=== PATIENT | male | born 1995 | race Caucasian/White ===

== ENCOUNTER 2019-03-01 06:42 | Emergency (ER) | payer BC ==
[~2019-03-01] VITALS: Ht 170.2 cm; Wt 83.9 kg
--- OUTSIDE RECORDS SUMMARY | 2019-03-01 06:45 | XMS REPORT | Encounter Summary ---
Author Organization Unknown Address [address] [place] [address] Phone [phone] Reason for Visit Medical Complaint Instructions 1. Streptococcal sore throat strep throat: care instructions amoxicillin 875 mg tablet rapid strep group A, throat Medrol (Kenny) 4 mg tablets in a dose pack 2. Feeling feverish rapid flu (A+B) 3. Body mass index 30+ - obesity body mass index: care instructions 4. Immunization due Discussion Note Encouraged warm salt-water gargles and monitor for fever. Please seek care (PCP, Urgent Care, ER) or return to [facility] if symptoms get worse or do not resolve in 1 week. Patient understands to practice good hand hygiene, take abx as prescribed, disinfect common areas of the home and purchase new tooth brushes. Plan of Care Patient Instructions Follow up with PCP or go to ER or urgent care if symptoms get worsen Reminders Provider Appointments None recorded. Lab Rapid Strep Group a, Throat 12/16/2018 [facility] Rapid Flu (A+B) 12/16/2018 [facility] Referral None recorded. Procedures None recorded. Surgeries None recorded. Imaging None recorded. Medications Name Start Date amoxicillin 875 mg tablet Take 1 tablet every 12 hours by oral route after meals for 10 days. Medrol (Kenny) 4 mg tablets in a dose pack Take as directed in the pack Medications Administered None recorded. Vitals Height Weight BMI Blood Pressure 5 ft 7 in 200 lbs 31.3 kg/m2 110/80 mm[Hg] Lab Results Date Name Specimen Result Interpretation Description Value Range Status Address Rapid Flu (A+B) Influenza a negative [facility]: [address] [place] [address] Influenza B negative [facility]: [address] [place] [address] Rapid Strep Group a, Throat Result positive [facility]: [address] [place] [address] Swab Location Left and Right tonsillar pillars [facility]: [address] [place] [address] Allergies Code Code System Name Reaction Severity Status Onset NKDA Problems No Known Problems Procedures Date Name Performed by Hand Tendon Reconstruction Information not available Vaccine List Vaccine Type influenza, unspecified formulation 06/12/2016 Social History Smoking Status Never Smoker Past Encounters 12/16/2018 Streptococcal Sore Throat; Feeling Feverish; Body Mass Index 30+ - Obesity; Immunization Due Farhana YoANTONIO-C: [address] [facility], [place] [address], Ph. History of Present Illness Throat-Oral Complaint Reported By: Patient HPI: Location: throat. Quality: sore throat. Severity: mild. Duration: 2 days. Onset/Timing: sudden. Context: no sick contacts, no foreign travel, non-smoker. Modifying factors: OTC medication. Associated Symptoms: no fever, no headache, no body aches, no sputum production, no shortness of breath, no wheezing, no change in number of pillows needed to sleep at night, no sweats, no significant weight gain, no significant weight loss, no morning cough, no vomiting, no diarrhea, no rash, no nausea, fever, sore throat Review of Systems:ROS as noted in the HPI Review of Systems Basic Reported By: Patient Physical Exam Adult Basic, Adult Male Complete Reported By: Patient Constitutional: General Appearance: healthy-appearing, well-nourished, well-developed. Level of Distress: NAD. Ambulation: ambulating normally Psychiatric: Mental Status: active and alert. Orientation: to time, to place, to person Jtk-Hzin-Xjimo-Throat: Ears: no lesions on external ear, no outer ear tenderness, EACs clear, TMs clear, TM mobility normal. Hearing: no hearing loss. Nose: no lesions on external nose, nares patent, no septal deviation, nasal passages clear, no sinus tenderness, no nasal discharge. Lips, Teeth, and Gums: no mouth or lip ulcers, no bleeding gums, normal dentition. Oropharynx: moist mucous membranes, erythema, exudates, tonsils enlarged 1+ Neck: Lymph Nodes: no cervical LAD Lungs: Respiratory effort: no dyspnea, no tachypnea, no use of accessory muscles, no intercostal retractions. Auscultation: breath sounds normal, good air movement Cardiovascular: Heart Auscultation: RRR, no murmurs Neurologic: Gait and Station: normal gait, normal station
--- OUTSIDE RECORDS SUMMARY | 2019-03-01 06:45 | XMS REPORT | Encounter Summary ---
Author Organization Unknown Address [address] [place] [address] Phone [phone] Reason for Visit Medical Complaint Instructions 1. Nausea and vomiting Zofran 8 mg tablet nausea and vomiting: care instructions 2. Feeling feverish rapid flu (A+B) Discussion Note Pt is in NAD; Verbalizes understanding of all instructions with no questions at this time. Plan of Care Patient Instructions Stay hydrated, eat a liquid diet for the first four hours. Stay away from fried and spicy foods until symptoms resolve. If you do experience improvement in your symptoms within the next four hours, advance yourself to a carbohydrate-rich diet such as white rice, white bread, and crackers. Within the next four hours thereafter, you can advance to lean meats such as chicken, fish, and turkey. Four hours thereafter if symptoms do improve, then advance to a regular diet. Take over the counter medications for your symptoms as needed. Follow up with your PCP within 2-3 should symptoms worsen as discussed. In case of an emergency call 911 or go to nearest ER. Reminders Provider Appointments None recorded. Lab Rapid Flu (A+B) 03/25/2017 [facility] Referral None recorded. Procedures None recorded. Surgeries None recorded. Imaging None recorded. Medications Name Start Date Zofran 8 mg tablet Take 1 tablet every 8 hours by oral route as needed for 3 days. Medications Administered None recorded. Vitals Height Weight BMI Blood Pressure 5 ft 7 in 190 lbs 29.8 kg/m2 120/80 mm[Hg] Lab Results Date Name Specimen Result Interpretation Description Value Range Status Address Rapid Flu (A+B) Influenza a negative [facility]: [address] [place] [address] Influenza B negative [facility]: [address] [place] [address] Allergies Code Code System Name Reaction Severity Onset NKDA Problems None recorded. Procedures Date Name Performed by Hand Tendon Reconstruction Information not available Vaccine List Vaccine Type influenza, unspecified formulation 06/12/2016 Social History Smoking Status Current Some Day Smoker Past Encounters 03/25/2017 Nausea and Vomiting; Feeling Feverish ALISSON GarciaP-C: [address] [facility], [place] [address], Ph. History of Present Illness Btbzpx-Igoqtrhd-Hquepnqo / Abdominal Pain Reported By: Patient HPI: Quality: worsening, intermittent. Severity: mild. Duration: ; 2 days. Onset/Timing: worse with meals, gradual onset, 1-3 times a day. Context: no one else with similar symptoms, no recent camping, no recent picnic, no possible food sources, no recent travel; Pt reports being under a lot of stress lately. Alleviating factors: ; none. Aggravating factors: eating, stress. Associated Symptoms: no abdominal pain, no excess gas, no rash, no joint pain, no weight loss, no heartburn, no blood in stool, no mucus in stool, no black or tarry stools, no weakness, no nutrient deficiency, no headache, no feeling of fullness/mass in throat, no muscle aches, no bitter taste in the mouth, no difficulty swallowing (dysphagia), fever/chills, nausea, vomiting Review of Systems:ROS as noted in the HPI Review of Systems Basic Reported By: Patient Physical Exam Adult Basic, Adult Female Complete, Adult Male Complete Reported By: Patient Constitutional: General Appearance: healthy-appearing, well-nourished, well-developed. Level of Distress: NAD. Ambulation: ambulating normally Psychiatric: Mental Status: active and alert. Orientation: to time, to place, to person Eyes: Lids and Conjunctivae: non-injected, no pallor Tvy-Gbex-Xxexz-Throat: Lips, Teeth, and Gums: no mouth or lip ulcers, no bleeding gums, normal dentition. Oropharynx: moist mucous membranes, no erythema, no exudates, tonsils not enlarged Neck: Neck: supple. Lymph Nodes: no cervical LAD Lungs: Respiratory effort: no dyspnea, no tachypnea, no use of accessory muscles, no intercostal retractions. Auscultation: breath sounds normal Cardiovascular: Heart Auscultation: RRR, no murmurs Abdomen: Bowel Sounds: high-pitched. Inspection and Palpation: soft, non-distended, no tenderness, no guarding, no rebound tenderness, no masses, no CVA tenderness. Liver: non-tender, no hepatomegaly. Spleen: non-tender, no splenomegaly. Hernia: none palpable
--- OUTSIDE RECORDS SUMMARY | 2019-03-01 06:45 | XMS REPORT | Encounter Summary ---
Author Organization Unknown Address [address] [place] [address] Phone [phone] Reason for Visit Medical Complaint Instructions 1. Acute sinusitis sinusitis: care instructions Augmentin 875 mg-125 mg tablet 2. Pain in throat sore throat: care instructions rapid strep group A, throat 3. Feeling feverish rapid flu (A+B) Discussion Note: None recorded. Plan of Care Patient Instructions consider a trial of flonase and zyrtec if you havent already. follow up pcp Reminders Provider Appointments None recorded. Lab Rapid Strep Group a, Throat 07/22/2017 [facility] Rapid Flu (A+B) 07/22/2017 [facility] Referral None recorded. Procedures None recorded. Surgeries None recorded. Imaging None recorded. Medications Name Start Date Augmentin 875 mg-125 mg tablet Take 1 tablet every 12 hours by oral route with meals for 7 days. Medications Administered None recorded. Vitals Height Weight BMI Blood Pressure 5 ft 7 in 190 lbs 29.8 kg/m2 110/78 mm[Hg] Lab Results Date Name Specimen Result Interpretation Description Value Range Status Address Rapid Flu (A+B) Influenza a negative [facility]: [address] [place] [address] Influenza B negative [facility]: [address] [place] [address] Rapid Strep Group a, Throat Result negative [facility]: [address] [place] [address] Swab Location Left and Right tonsillar pillars [facility]: [address] [place] [address] Allergies Code Code System Name Reaction Severity Status Onset NKDA Problems None recorded. Procedures Date Name Performed by Hand Tendon Reconstruction Information not available Vaccine List Vaccine Type influenza, unspecified formulation 06/12/2016 Social History Smoking Status Current Some Day Smoker Past Encounters 07/22/2017 Acute Sinusitis; Pain in Throat; Feeling Feverish ANTONIO Zhu-C: [address] [place] [address], Ph. History of Present Illness Yfwky-Hnliuwsqxg-Drybndd Reported By: Patient HPI: Location: head/sinuses, throat, chest. Quality: productive cough, sore throat, colored phlegm, nasal/sinus congestion. Duration: 14days. Severity: moderate. Onset/Timing: gradual. Context: no sick contacts, no foreign travel, non-smoker. Modifying factors: OTC medication. Associated Symptoms: no shortness of breath, no wheezing, no change in number of pillows needed to sleep at night, no sweats, no significant weight gain, no significant weight loss, no morning cough, no vomiting, no diarrhea, no rash, no nausea, no fever, no headache, green sputum, sore throat, fever, muscle aches Review of Systems:ROS as noted in the HPI Review of Systems Basic Reported By: Patient Physical Exam Adult Basic, Adult Male Complete Reported By: Patient Constitutional: General Appearance: healthy-appearing, well-nourished, well-developed. Level of Distress: NAD. Ambulation: ambulating normally Psychiatric: Mental Status: active and alert Eyes: Lids and Conjunctivae: non-injected, no discharge Hih-Wafn-Dszyr-Throat: Ears: no lesions on external ear, no outer ear tenderness, EACs clear, TMs clear, TM mobility normal. Nose: no lesions on external nose, sinus tenderness, nasal discharge--purulent; congestion. Lips, Teeth, and Gums: no mouth or lip ulcers. Oropharynx: moist mucous membranes, no erythema, no exudates, tonsils not enlarged Neck: Neck: trachea midline. Lymph Nodes: no cervical LAD Lungs: Respiratory effort: no dyspnea, no tachypnea, no use of accessory muscles, no intercostal retractions. Auscultation: breath sounds normal, good air movement Cardiovascular: Heart Auscultation: RRR, no murmurs
--- OUTSIDE RECORDS SUMMARY | 2019-03-01 06:45 | XMS REPORT | Continuity of Care Document ---
Author Author [facility] [place] [facility] Address Unknown Phone Unavailable Problems Problem Status Onset Date Classification Date Reported Comments Source Feeling feverish 12/16/2018 Diagnosis 12/16/2018 [facility] Immunization due 12/16/2018 Diagnosis 12/16/2018 [facility] Body mass index 30+ - obesity 12/16/2018 Diagnosis 12/16/2018 [facility] Streptococcal sore throat 12/16/2018 Diagnosis 12/16/2018 [facility] Acute sinusitis 07/22/2017 Diagnosis 07/22/2017 [facility] Pain in throat 07/22/2017 Diagnosis 07/22/2017 [facility] Nausea and vomiting 03/25/2017 Diagnosis 03/25/2017 [facility] Medications Medication Details Route Status Patient Instructions Ordering Provider Order Date Source Ondansetron 8 MG Oral Tablet [Zofran] Zofran 8 mg tablet Take 1 tablet every 8 hours by oral route as needed for 3 days. Active [facility] Amoxicillin 875 MG / Clavulanate 125 MG Oral Tablet [Augmentin] Augmentin 875 mg-125 mg tablet Take 1 tablet every 12 hours by oral route with meals for 7 days. Active [facility] Amoxicillin 875 MG / Clavulanate 125 MG Oral Tablet amoxicillin 875 mg-potassium clavulanate 125 mg tablet TK 1 T PO BID Active [facility] amoxicillin/clavulanate potassium 875-125 mg tabs amoxicillin/clavulanate potassium 875-125 mg tabs Active [facility] Amoxicillin 875 MG Oral Tablet amoxicillin 875 mg tablet Take 1 tablet every 12 hours by oral route after meals for 10 days. Active [facility] Medrol (Kenny) 4 mg tablets in a dose pack Medrol (Kenny) 4 mg tablets in a dose pack Take as directed in the pack Active [facility] Allergies, Adverse Reactions, Alerts Substance Category Reaction Severity Reaction type Status Date Reported Comments Source Immunizations Immunization Date Given Site Status Last Updated Comments Source influenza, unspecified formulation 06/12/2016 completed [facility] Results Order Name Results Value Reference Range Date Interpretation Comments Source Influenza A negative 12/16/2018 [facility] Influenza B negative 12/16/2018 [facility] RESULT positive 12/16/2018 [facility] SWAB LOCATION Left and Right tonsillar pillars 12/16/2018 [facility] Influenza A negative 07/22/2017 [facility] Influenza B negative 07/22/2017 [facility] RESULT negative 07/22/2017 [facility] SWAB LOCATION Left and Right tonsillar pillars 07/22/2017 [facility] Influenza A negative 03/25/2017 [facility] Influenza B negative 03/25/2017 [facility] Vital Signs Vital Sign Value Date Comments Source Diastolic (mm Hg) 80 12/16/2018 [facility] Height 67 12/16/2018 [facility] Systolic (mm Hg) 110 12/16/2018 [facility] Weight 200 12/16/2018 [facility] Diastolic (mm Hg) 78 07/22/2017 [facility] Height 67 07/22/2017 [facility] Systolic (mm Hg) 110 07/22/2017 [facility] Weight 190 07/22/2017 [facility] Diastolic (mm Hg) 80 03/25/2017 [facility] Height 67 03/25/2017 [facility] Systolic (mm Hg) 120 03/25/2017 [facility] Weight 190 03/25/2017 [facility] Encounters Location Location Details Encounter Type Encounter Number Reason For Visit Attending Provider ADM Date DC Date Status Source [place] - [facility] - [id number] Buchanan-C: [address] [place] [address], Ph. [id number] Ese Sifuentes 03/25/2017 [facility] [place] - [facility] - [id number] ALISSON ZhuP-C: [address] [place] [address], Ph. [id number] Mahin López 07/22/2017 [facility] [place] - [facility] - [id number] NANCY CarrasquilloC: [address] [place] [address], Ph. [id number] Narennaheedkaitlin Keene 03/27/2018 [facility] [place] - [facility] - [id number] Farhana Yo, [employer]-C: [address], [place] [address], Ph. [phone] [id number] Farhana Yo 12/16/2018 [facility] Procedures Procedure Code Date Perfomer Comments Source Hand Tendon Reconstruction [facility] Hand Tendon Reconstruction [address] [facility]
--- OUTSIDE RECORDS SUMMARY | 2019-03-01 06:45 | XMS REPORT | Encounter Summary ---
Author Organization Unknown Address [address] [place] [address] Phone [phone] Reason for Visit Medical Complaint Instructions None recorded. Discussion Note: None recorded. Patient educational handouts: No information available. Plan of Care Reminders Provider Appointments None recorded. Lab None recorded. Referral None recorded. Procedures None recorded. Surgeries None recorded. Imaging None recorded. Medications Name Start Date amoxicillin 875 mg-potassium clavulanate 125 mg tablet TK 1 T PO BID amoxicillin/clavulanate potassium 875-125 mg tabs Medications Administered None recorded. Vitals None recorded. Lab Results None recorded. Allergies Code Code System Name Reaction Severity Status Onset NKDA Problems None recorded. Procedures Date Name Performed by Hand Tendon Reconstruction Information not available Vaccine List Vaccine Type influenza, unspecified formulation 06/12/2016 Social History Smoking Status Current Some Day Smoker Past Encounters 03/27/2018 Meenakshi Keene PA-C: [address] [place] [address], Ph. History of Present Illness None recorded. Review of Systems Basic Reported By: Patient Physical Exam Adult Basic, Adult Male Complete Reported By: Patient
[2019-03-01] MEDS ORDERED: MORPHINE SULFATE 2 MG/ML SYR 1ML IV STA (07:27)
[2019-03-01] MEDS ORDERED: ONDANSETRON HCL INJ 2MG/ML 2ML 2 MG/ML VIAL IV STA (07:27)
[2019-03-01] MEDS ORDERED: SODIUM CHLORIDE 0.9% 1000ML 1,000 ML IV STA (07:27)
[2019-03-01] MEDS ORDERED: PANTOPRAZOLE 40 MG 10ML VIAL IV STA (07:27)
[2019-03-01] MEDS ORDERED: MORPHINE SULFATE INJ 4 MG/ML INJ 1ML IV ONE (07:45)
[2019-03-01 08:05] LABS: BASOPHILS % 0.3 % (0.0-1.0); EOSINOPHILS # (AUTO) 0.1 (0.0-0.4); EOSINOPHILS % 0.9 % (0.0-6.0); HEMATOCRIT 47.8 % (38.2-49.6); HEMOGLOBIN 15.9 g/dL (14.0-18.0); LYMPHOCYTES % 8.6 % (18.0-39.1); MEAN CORPUSCULAR HEMOGLOBIN 29.6 pg (28-32); MEAN CORPUSCULAR HGB CONC 33.3 g/dL (31-35); MONOCYTES # (AUTO) 0.7 (0.2-0.8); MONOCYTES % 6.5 % (4.4-11.3); NEUTROPHILS # (AUTO) 9.5 (2.1-6.9); NEUTROPHILS % 83.4 % (38.7-80.0); PLATELET COUNT 224 x10e3/uL (140-360); RED BLOOD COUNT 5.37 x10e6/uL (4.3-5.7); RED CELL DISTRIBUTION WIDTH 12.3 % (11.7-14.4)
[2019-03-01 08:26] LABS: ALANINE AMINOTRANSFERASE 22 IU/L (0-55); ALBUMIN 4.2 g/dL (3.5-5.0); ALBUMIN/GLOBULIN RATIO 1.2 (0.8-2.0); ALKALINE PHOSPHATASE 66 IU/L (40-150); AMYLASE 60 U/L (25-125); ANION GAP 15.9 mmol/L (8-16); BLOOD UREA NITROGEN 12 mg/dL (7-26); BUN/CREATININE RATIO 11 (6-25); CALCIUM 10.1 mg/dL (8.4-10.2); CARBON DIOXIDE 28 mmol/L (22-29); CHLORIDE 105 mmol/L (98-107); CREATINE KINASE 116 IU/L (30-200); CREATININE, SERUM 1.05 mg/dL (0.72-1.25); EST GLOMERULAR FILTRATION RATE > 60 ML/MIN (60-); GLUCOSE 94 mg/dL (74-118); LIPASE 100 U/L (8-78); MAGNESIUM 2.2 MG/DL (1.3-2.1); POTASSIUM 3.9 mmol/L (3.5-5.1); SODIUM 145 mmol/L (136-145)
[2019-03-01 08:59] LABS: INR 0.92; PROTHROMBIN TIME 12.8 seconds (11.9-14.5)
[2019-03-01 09:00] LABS: PARTIAL THROMBOPLASTIN TIME 33.9 seconds (23.8-35.5)
--- NOTE | 2019-03-01 09:18 | Diagnostic Imaging Report ---
Examination: Single AP view of the chest. COMPARISON: None. INDICATION: Chest and abdominal pain DISCUSSION: Lines/tubes: None. Lungs: The lungs are well-inflated. Patchy opacities in the right upper lung. Small perihilar nodular opacities are felt to represent vessels viewed end-on. There is no evidence of pneumonia or pulmonary edema. Pleura: There is no pleural effusion or pneumothorax. Heart and mediastinum: The heart and the mediastinum are unremarkable. Bones and soft tissues: No acute bony abnormalities. IMPRESSION: Patchy airspace disease in the right upper lung may represent atelectasis or developing pneumonia in the appropriate clinical setting. Follow-up chest radiograph (PA and lateral) is suggested in 8 weeks to document resolution Signed by: Dr. Carrillo Gonzalez M.D. on 03/01/2019 9:15 AM
--- NOTE | 2019-03-01 09:28 | Diagnostic Imaging Report ---
EXAMINATION: CT of the abdomen and pelvis with contrast. TECHNIQUE: Spiral CT images of the abdomen and pelvis were performed from the lung bases to the lesser trochanters after the intravenous administration of 100 cc Isovue-370. Coronal and sagittal reformatted images were available for review. COMPARISON: None. CLINICAL HISTORY:Abdominal pain right upper quadrant, right lower quadrant DISCUSSION: ABDOMEN/PELVIS: LOWER THORAX:Unremarkable. HEPATOBILIARY: No focal hepatic lesions. No intra-or extrahepatic biliary ductal dilation. The gallbladder is normal. SPLEEN: No splenomegaly. PANCREAS: No focal masses or ductal dilatation. ADRENALS: No adrenal nodules. KIDNEYS/URETERS: No hydronephrosis, stones, or solid mass lesions. PELVIC ORGANS/BLADDER: Urinary bladder is incompletely distended and poorly evaluated. Prostate and seminal vesicles appear normal. PERITONEUM/RETROPERITONEUM: No free air or fluid. LYMPH NODES: No pelvic sidewall, retroperitoneal, or mesenteric lymphadenopathy. VESSELS: Abdominal aorta, major branch vessels, and iliac arterial systems are patent without aneurysmal dilatation. Portal vein, splenic vein, and central superior mesenteric vein are patent. GI TRACT: The large bowel shows no distention or wall thickening. Gas and fecal material are noted throughout. The appendix is normal. Concentric wall thickening of the gastric antrum as seen on series 2 image 31. No small bowel dilatation to suggest obstruction. BONES AND SOFT TISSUE: No bony destructive lesions. No soft tissue abnormalities. IMPRESSION: Concentric wall thickening of the gastric antrum is nonspecific though likely inflammatory in a patient of this age. Correlate for symptoms of gastritis, and consider gastroenterology consultation. Otherwise no acute intra-abdominal or pelvic CT abnormalities. Signed by: Dr. Carrillo Gonzalez M.D. on 03/01/2019 9:25 AM
[2019-03-01 09:50] LABS: BILIRUBIN,URINE NEGATIVE (NEGATIVE); CLARITY,URINE SL CLOUDY (CLEAR); COLOR,URINE YELLOW (YELLOW); KETONES,URINE NEGATIVE (NEGATIVE); LEUKOCYTE ESTERASE ,URINE NEGATIVE (NEGATIVE); NITRITE,URINE NEGATIVE (NEGATIVE); PROTEIN,URINE DIPSTICK NEGATIVE (NEGATIVE); URINE UROBILINOGEN 1 mg/dL (0.2 - 1)
[2019-03-01 09:55] LABS: AMPHETAMINES SCREEN,URINE NEGATIVE (NEGATIVE); BENZODIAZEPINES SCREEN,URINE NEGATIVE (NEGATIVE); PHENCYCLIDINE SCREEN,URINE NEGATIVE (NEGATIVE)
[2019-03-01 10:11] LABS: EPITHELIAL CELLS,URINE RARE /LPF
[2019-03-01] MEDS ORDERED: SODIUM CHLORIDE 0.9% 50ML 50 ML ONE (10:12)
[2019-03-01] MEDS ORDERED: IOPAMIDOL 370 MG/ML 200 ML INFUS..BTL INJ ONE (10:12)
[2019-03-01 10:42] VITALS: BP 128/79
== END 2019-03-01 10:40 | disposition home or self-care (01) ==
LOC: ER 06:42
DX: R10.13 Epigastric pain (principal); R10.11 Right upper quadrant pain; R11.2 Nausea with vomiting, unspecified; K29.00 Acute gastritis without bleeding
CPT/HCPCS: 36415; 71045; 74177; 80053; 80307; 81001; 82150; 82550; 82553; 83690; 83735; 84484; 85025; 85379; 85610; 85730; 93005; 96374; 96375; 99284; C9113; J2270; J2405; J7030; Q9967

== ENCOUNTER 2019-08-26 17:51 | Emergency (ER) | payer BC ==
[~2019-08-26] VITALS: Ht 170.2 cm; Wt 83.9 kg
[2019-08-26] MEDS ORDERED: SODIUM CHLORIDE 0.9% 1000ML 1,000 ML IV STA (18:17)
[2019-08-26] MEDS ORDERED: ONDANSETRON HCL INJ 2MG/ML 2ML 2 MG/ML VIAL IV NR (18:30)
[2019-08-26] MEDS ORDERED: LIDOCAINE VISC 2% SOLN 15 ML UDC PO ONE (18:30)
[2019-08-26] MEDS ORDERED: MAGNESIUM/ALUMINUM/SIMETHICONE 30 ML UDC PO ONE (18:30)
[2019-08-26 19:19] LABS: BASOPHILS % 0.2 % (0.0-1.0); EOSINOPHILS % 0.2 % (0.0-6.0); HEMOGLOBIN 17.2 g/dL (14.0-18.0); LYMPHOCYTES # (AUTO) 1.4 (1.0-3.2); LYMPHOCYTES % 12.2 % (18.0-39.1); MEAN CORPUSCULAR HEMOGLOBIN 30.4 pg (28-32); MEAN CORPUSCULAR HGB CONC 35.1 g/dL (31-35); MEAN CORPUSCULAR VOLUME 86.7 fL (81-99); MONOCYTES # (AUTO) 0.5 (0.2-0.8); MONOCYTES % 4.8 % (4.4-11.3); NEUTROPHILS # (AUTO) 9.1 (2.1-6.9); NEUTROPHILS % 82.2 % (38.7-80.0); PLATELET COUNT 236 x10e3/uL (140-360); RED BLOOD COUNT 5.65 x10e6/uL (4.3-5.7); RED CELL DISTRIBUTION WIDTH 11.9 % (11.7-14.4)
[2019-08-26 19:33] LABS: ALANINE AMINOTRANSFERASE 37 IU/L (0-55); ALBUMIN 4.3 g/dL (3.5-5.0); ALBUMIN/GLOBULIN RATIO 1.3 (0.8-2.0); ALKALINE PHOSPHATASE 55 IU/L (40-150); AMYLASE 44 U/L (25-125); ANION GAP 14.7 mmol/L (8-16); BLOOD UREA NITROGEN 14 mg/dL (7-26); BUN/CREATININE RATIO 12 (6-25); CALCIUM 10.4 mg/dL (8.4-10.2); CARBON DIOXIDE 28 mmol/L (22-29); CHLORIDE 102 mmol/L (98-107); CREATININE, SERUM 1.13 mg/dL (0.72-1.25); EST GLOMERULAR FILTRATION RATE > 60 ML/MIN (60-); GLUCOSE 107 mg/dL (74-118); LIPASE 33 U/L (8-78); POTASSIUM 3.7 mmol/L (3.5-5.1); SODIUM 141 mmol/L (136-145)
[2019-08-26] MEDS ORDERED: IOPAMIDOL 370 MG/ML 200 ML INFUS..BTL INJ ONE (19:58)
[2019-08-26] MEDS ORDERED: SODIUM CHLORIDE 0.9% 50ML 50 ML ONE (19:58)
[2019-08-26] MEDS ORDERED: BELLADONNA ALK/PHENOBARBITAL 5 ML UDC PO SCH (21:00)
--- NOTE | 2019-08-26 21:20 | Diagnostic Imaging Report ---
EXAM: CT Abdomen and Pelvis WITH contrast INDICATION: Diffuse abdominal pain, worse in the upper abdomen, vomiting, onset this morning COMPARISON: abdominal CT 03/01/2019 TECHNIQUE: Abdomen and pelvis were scanned utilizing a multidetector helical scanner from the lung base to the pubic symphysis after administration of IV contrast. Coronal and sagittal reformations were obtained. Routine protocol was performed. Scan was performed when during portal venous phase. IV CONTRAST: 100 mL of Isovue 370 ORAL CONTRAST: None COMPLICATIONS: None RADIATION DOSE: Total DLP: 346 mGy*cm Estimated effective dose: (DLP x 0.015 x size factor) mSv CTDIvol has been reviewed. It is below the limits set by the Radiation Protocol Committee (RPC). Dose modulation, iterative reconstruction, and/or weight based adjustment of the mA/kV was utilized to reduce the radiation dose to as low as reasonably achievable. FINDINGS: LINES and TUBES: None. LOWER THORAX: [A 5 mm groundglass nodule in the right lung base, likely infectious/inflammatory, no follow-up required. HEPATOBILIARY: No focal hepatic lesions. No biliary ductal dilation. GALLBLADDER: No radio-opaque stones or sludge. No wall thickening. SPLEEN: No splenomegaly. PANCREAS: No focal masses or ductal dilatation. ADRENALS: No adrenal nodules KIDNEYS/URETERS: Kidneys enhance symmetrically. No hydronephrosis. No cystic or solid mass lesions. No stones. GI TRACT: Mild circumferential wall thickening, submucosal edema, and mucosal hyperenhancement in the gastric antrum, these findings are also seen on 03/01/2019. There is mucosal hyperenhancement in the proximal duodenum. Subtle fat stranding about the gastric antrum and proximal duodenum. No abnormal distention, or evidence of bowel obstruction. Appendix is normal. PELVIC ORGANS/BLADDER: Unremarkable. LYMPH NODES: No lymphadenopathy. VESSELS: Unremarkable. PERITONEUM / RETROPERITONEUM: No free air or fluid. BONES: Unremarkable. SOFT TISSUES: Unremarkable. IMPRESSION: Findings of antral gastritis and likely proximal duodenitis, likely peptic. Antral gastritis was also seen on abdominal CT 03/01/2019. Consider gastroenterology referral. Signed by: Shmuel Westbrook DO on 08/26/2019 9:16 PM
[2019-08-26 21:59] VITALS: BP 153/94
--- OUTSIDE RECORDS SUMMARY | 2019-08-31 12:33 | XMS REPORT ---
[facility] Address Unknown Phone Unavailable Care Team Providers Care Personal Financial Counselor Name Role Phone DEANNE HANNON Unavailable Unavailable Donta ALEX Unavailable Unavailable Problems This patient has no known problems. Allergies, Adverse Reactions, Alerts This patient has no known allergies or adverse reactions. Medications This patient has no known medications. Results Test Description Test Time Test Comments Text Results Atomic Results Result Comments CT ABDOMEN/PELVIS W 2019-08-26 21:08:00 [place] [address] Patient Name: HARRIETT HOUSTON MR #: [id number] : 1995 Age/Sex: 23/M Req #: [id number] Adm Physician: Ordered by: DEANNE REIS [employer] MANAGER Report #: [id number] Location: ER Room/Bed: Procedure: [id number] CT/CT ABDOMEN/PELVIS W Exam Date: 08/26/19 Exam Time: 2014 REPORT STATUS: Signed EXAM: CT Abdomen and Pelvis WITH contrast I NDICATION: Diffuse abdominal pain, worse in the upper abdomen, vomiting, onset this morning COMPARISON: abdominal CT 03/01/2019 TECHNIQUE: Abdomen and pelvis were scanned utilizing a multidetector helical scanner from the lung base to the pubic symphysis after administration of IV contrast. Coronal and sagittal reformations were obtained. Routine protocol was performed. Scan was performed when during portal venous phase. IV CONTRAST: 100 mL of Isovue 370 ORAL CONTRAST: None COMPLICATIONS: None RADIATION DOSE: Total DLP: 346 mGy*cm Estimated effective dose: (DLP x 0.015 x size factor) mSv CTDIvol has been reviewed. It is below the limits set by the Radiation Protocol Committee (RPC). Dose modulation, iterative reconstruction, and/or weight based adjustment of the mA/kV was utilized to reduce the radiation dose to as low as reasonably achievable. FINDINGS: LINES and TUBES: None. LOWER THORAX: [A 5 mm groundglass nodule in the right lung base, likely infectious/inflammatory, no follow-up required. HEPATOBILIARY: No focal hepatic lesions. No biliary ductal dilation. GALLBLADDER: No radio-opaque stones or sludge. No wall thickening. SPLEEN: No splenomegaly. PANCREAS: No focal masses or ductal dilatation. ADRENALS: No adrenal nodules KIDNEYS/URETERS: Kidneys enhance symmetrically. No hydronephrosis. No cystic or solid mass lesions. No stones. GI TRACT: Mild circumferential wall thickening, submucosal edema, and mucosal hyperenhancement in the gastric antrum, these findings are also seen on 03/01/2019. There is mucosal hyperenhancement in the proximal duodenum. Subtle fat stranding about the gastric antrum and proximal duodenum. No abnormal distention, or evidence of bowel obstruction. Appendix is normal. PELVIC ORGANS/BLADDER: Unremarkable. LYMPH NODES: No lymphadenopathy. VESSELS: Unremarkable. PERITONEUM / RETROPERITONEUM: No free air or fluid. BONES: Unremarkable. SOFT TISSUES: Unremarkable. IMPRESSION: Findings of antral gastritis and likely proximal duodenitis, likely peptic. Antral gastritis was also seen on abdominal CT 03/01/2019. Consider gastroenterology referral. Signed by: Shmuel Westbrook DO on 08/26/2019 9:16 PM Dictated By: SHMUEL WESTBROOK DO 15 Transcribed By: DEBORAH on 08/26/192115 COPY TO: DEANNE REIS NP CT ABDOMEN/PELVIS W 2019-03-01 09:15:00 [place] [address] Patient Name: HARRIETT HOUSTON MR #: [id number] : 1995 Age/Sex: 23/M Req #: [id number] Adm Physician: Ordered by: FREDY ALEX MD Report #: [id number] Location: ER Room/Bed: Procedure: CT/CT ABDOMEN/PELVIS W Exam Date: 03/01/19 Exam Time: 854 REPORT STATUS: Signed EXAMINATION: CT of the abdomen and pelvis with co ntrast. TECHNIQUE: Spiral CT images of the abdomen and pelvis were performed from the lung bases to the lesser trochanters after the intravenous administration of 100 cc Isovue-370. Coronal and sagittal reformatted images were available for review. COMPARISON: None. CLINICAL HISTORY:Abdominal pain right upper quadrant, right lower quadrant DISCUSSION: ABDOMEN/PELVIS: LOWER THORAX:Unremarkable. HEPATOBILIARY: No focal hepatic lesions. No intra-or extrahepatic biliary ductal dilation. The gallbladder is normal. SPLEEN: No splenomegaly. PANCREAS: No focal masses or ductal dilatation. ADRENALS: No adrenal nodules. KIDNEYS/URETERS: No hydronephrosis, stones, or solid mass lesions. PELVIC ORGANS/BLADDER: Urinary bladder is incompletely distended and poorly evaluated. Prostate and seminal vesicles appear normal. PERITONEUM/RETROPERITONEUM: No free air or fluid. LYMPH NODES: No pelvic sidewall, retroperitoneal, or mesenteric lymphadenopathy. VESSELS: Abdominal aorta, major branch vessels, and iliac arterial systems are patent without aneurysmal dilatation. Portal vein, splenic vein, and central superior mesenteric vein are patent. GI TRACT: The large bowel shows no distention or wall thickening. Gas and fecal material are noted throughout. The appendix is normal. Concentric wall thickening of the gastric antrum as seen on series 2 image 31. No small bowel dilatation to suggest obstruction. BONES AND SOFT TISSUE: No bony destructive lesions. No soft tissue abnormalities. IMPRESSION: Concentric wall thickening of the gastric antrum is nonspecific though likely inflammatory in a patient of this age. Correlate for symptoms of gastritis, and consider gastroenterology consultation. Otherwise no acute intra-abdominal or pelvic CT abnormalities. Signed by: Dr. Madyson Lobato M.D. on 03/01/2019 9:25 AM Dictated By: MADYSON LOBATO MD 4 Transcribed By: DEBORAH on 03/01/19924 COPY TO: FREDY ALEX MD CHEST SINGLE (NOT PORTABLE) 2019-03-01 09:12:00 [place] [address] Patient Name: HARRIETT HOUSTON MR #: [id number] : 1995 Age/Sex: 23/M Req #: [id number] Adm Physician: Ordered by: FREDY ALEX MD Report #: [id number] Location: ER Room/Bed: Procedure: [id number] DX/CHEST SINGLE (NOT PORTABLE) Exam Date: 03/01/19 Exam Time: 0855 REPORT STATUS: Signed Examination: Single AP view of the chest. COMPARISON: None. INDICATION: Chest and abdominal pain DISCUSSION: Lines/tubes: None. Lungs: The lungs are well-inflated. Patchy opacities in the right upper lung. Small perihilar nodular opacities are felt to represent vessels viewed end-on. There is no evidence of pneumonia or pulmonary edema. Pleura: There is no pleural effusion or pneumothorax. Heart and mediastinum: The heart and the mediastinum are unremarkable. Bones and soft tissues: No acute bony abnormalities. IMPRESSION: Patchy airspace disease in the right upper lung may represent atelectasis or developing pneumonia in the appropriate clinical setting. Follow-up chest radiograph (PA and lateral) is suggested in 8 weeks to document resolution Signed by: Dr. Madyson Lobato M.D. on 03/01/2019 9:15 AM Dictated By: MADYSON LOBATO MD 4 Transcribed By: DEBORAH on 03/01/19914 COPY TO: FREDY ALEX MD
== END 2019-08-26 22:01 | disposition home or self-care (01) ==
LOC: ER 17:51
DX: R10.84 Generalized abdominal pain (principal); R10.13 Epigastric pain; R11.2 Nausea with vomiting, unspecified; K29.00 Acute gastritis without bleeding
CPT/HCPCS: 36415; 74177; 80053; 82150; 83690; 85025; 99284; J2405; J7030; Q9967